=== PATIENT | female | born 2000 | race Caucasian/White ===

== ENCOUNTER 2020-10-30 11:30 | Outpatient (REF) | payer BC, SELFPAY ==
[2020-10-30 13:40] LABS: Hematocrit 40.2 % (37-47); Hemoglobin 13.4 g/dl (12.0-16.0); Mean Corpuscular HGB Conc 33.3 g/dl (31.0-35.0); Mean Corpuscular Hemoglobin 29.6 pg (27.0-33.0); Mean Corpuscular Volume 88.7 fL (80-98); Mean Platelet Volume 9.6 fL (9.4-12.3); Platelet Count 233 X10*3/uL (160-400); Red Blood Count 4.53 X10*6/uL (4.20-5.50); Red Cell Distribution Width 13.2 % (11.0-16.0); White Blood Count 5.3 X10*3/uL (4.8-10.8)
[2020-10-30 14:03] LABS: Alanine Aminotransferase 26 U/L (0-31); Albumin Level 4.3 g/dL (3.5-5.0); Alkaline Phosphatase 57 U/L (39-117); Anion Gap 13 (12-20); Aspartate Amino Transferase 18 U/L (5-31); Bilirubin Total 0.5 mg/dL (0.0-1.0); Blood Urea Nitrogen 4 mg/dL (9-16); C Reactive Protein 0.28 mg/dL (< or = 0.50); Calcium 9.8 mg/dL (8.4-10.2); Carbon Dioxide 25 mmol/L (22-29); Chloride 107 mmol/L (96-108); Estimated Glomerular Filt Rate > 60; Glucose Random 77 mg/dL (60-115); Potassium 3.7 mmol/L (3.3-5.1); Sodium 141 mmol/L (135-145); Total Protein 6.4 g/dL (6.5-8.0)
[2020-10-30 14:25] LABS: TSH reflex Free T4 0.49 uIU/mL (0.32-4.0)
[2020-10-31 13:08] LABS: H Pylori Breath Test Negative (Negative)
[2020-11-01 17:12] LABS: Transglutaminase Ab IgG 1 U/mL; Transglutaminase IgA 1 U/mL
== END 2020-10-30 11:31 | disposition home or self-care (01) ==
LOC: HO.LAB 11:30
PROVIDERS: Visit Provider Nurse Practitioner Family
DX: K58.2 Mixed irritable bowel syndrome (principal); K21.9 Gastro-esophageal reflux disease without esophagitis; R10.11 Right upper quadrant pain; R14.0 Abdominal distension (gaseous); K58.9 Irritable bowel syndrome, unspecified; Z12.11 Encounter for screening for malignant neoplasm of colon; Z11.0 Encounter for screening for intestinal infectious diseases
CPT/HCPCS: 36415; 80053; 83013; 83516; 84443; 85027; 86140

== ENCOUNTER → 2020-12-04 10:46 | Outpatient (BNVA) | payer BC, SELFPAY | PROVIDERS: Visit Provider Nurse Practitioner Family ==

== ENCOUNTER 2021-01-04 07:31 | Day surgery (SDC) | payer BC, SELFPAY ==
--- NOTE | 2021-01-01 11:05 | P.CONAN_ITS ---
Documented by User: Alisha Rizo NP 01/01/21 11:06 HPI - Anesthesia Eval Consult details Narrative: 20yo F for Upper Endoscopy [facility] Past Medical History Medical History IBS (irritable bowel syndrome) Social History Social History Household Members: Family Alcohol intake: current Alcohol intake frequency: holidays/special occasions only Patient Tobacco Use Status: Never used Tobacco Use of substances other than those prescribed or required for medical reasons: No Are you DNR?: No Advance Directives: No Advance Directives Information Provided: Yes Patient : No (UCG pending) Meds Allergies Allergy/AdvReac Type Severity Reaction Status Date / Time No Known Allergies Allergy Verified 12/29/20 15:31 Home Medications Medication Instructions Recorded Confirmed Last Taken Type fluticasone propionate 50 1 spray INTRANASAL DAILY 12/29/20 12/29/20 Unknown History mcg/actuation nasal spray,suspension norgestimate 0.25 mg-ethinyl 1 tab PO DAILY 12/29/20 12/29/20 Unknown History estradiol 35 mcg tablet (Wilson-Linyah) Exam Exam Date and Time: January 01, 2021 1105 Assessment and Plan Assessment Anesthesia Assessment: Chart Reviewed Documented by User: Carla Catherine MD 01/04/21 08:23 [facility] Past Medical History Medical History IBS (irritable bowel syndrome) Family History Family history of problems with anesthesia: No Surgical History History of Problems with Anesthesia: No Social History Social History Household Members: Family Alcohol intake: current Alcohol intake frequency: holidays/special occasions only Patient Tobacco Use Status: Never used Tobacco Use of substances other than those prescribed or required for medical reasons: No Are you DNR?: No Advance Directives: No Advance Directives Information Provided: Yes Patient : No (UCG pending) Meds Allergies Allergy/AdvReac Type Severity Reaction Status Date / Time No Known Allergies Allergy Verified 12/29/20 15:31 Home Medications Medication Instructions Recorded Confirmed Last Taken Type fluticasone propionate 50 1 spray INTRANASAL DAILY 12/29/20 12/29/20 Unknown History mcg/actuation nasal spray,suspension norgestimate 0.25 mg-ethinyl 1 tab PO DAILY 12/29/20 12/29/20 Unknown History estradiol 35 mcg tablet (Wilson-Linyah) Exam Airway Mallampati Class: I TM Dist: >3cm Neck ROM: Full Heart: rrr Lungs: cta Assessment and Plan Assessment Anesthesia Assessment: Anesthesia Plan Discussed and Chart Reviewed Final Anesthetic Review Family History of Problems with Anesthesia: No History of Problems with Anesthesia: No NPO: Yes ASA Class: I Final Preanesthetic Review: No Changes in Pt Med Stat, Meds/Allgs Chart Reviewed and Consent Obtained/Reviewed Patient Risk: Intermediate Procedure Risk: Intermediate Anesthetic Plan Anesthetic Plan: MAC: Disposition: Standard PACU
[2021-01-04 07:50] LABS: UPreg QC Valid YES; Urine Pregnancy NEGATIVE (NEGATIVE)
[2021-01-04 07:56] VITALS: BP 124/74; PULSE 67; RESP 6; TEMP 36.7; O2SAT 98; BMI 22.1
[2021-01-04] MEDS: Lactated Ringers 1,000 ML 100 ML IVCONT (08:04)
--- NOTE | 2021-01-04 08:35 | MHC.SHP ---
Pre-Procedural Eval Section A Date of Service: 01/04/21 The patient is an INPATIENT: No Changes since office visit: Yes Patient answered all questions; No Cold of Flu in the past 2 weeks, No New Medical Problems and No Changes in Medication The History & Physical has been completed within 30 days and I have reviewed it.: Yes Section B Chief Complaint: GERD Allergies: Allergies Allergy/AdvReac Type Severity Reaction Status Date / Time No Known Allergies Allergy Verified 12/29/20 15:31 Plan I have reviewed the history and physical and performed a pertinent physical examination on my patient. No changes have occurred unless specified.
--- NOTE | 2021-01-04 08:35 | PM.OP ---
Brief Operative Note Date of Service: 01/04/21 Pre-op diagnosis: GERD, abdominal pain, bloating, constipation alternating with diarrhea Post-op diagnosis: other (Gastritis, GERD) Procedure: FLEXIBLE TRANSORAL UPPER GASTROINTESTINAL ENDOSCOPY WITH BIOPSIES Consent: Indications for the procedure and potential complications of bleeding, perforation, reaction to medications and missed diagnosis were discussed with the patient and informed consent was obtained. Instrument: Olympus GIF H 190 mid size upper endoscope Monitoring: Vital signs and clinical assessment, continuous EKG monitoring, Pulse oximetry, Carbon Dioxide monitoring and blood pressure monitoring were done throughout the procedure. Procedure: The patient was placed in the left lateral decubitis position and pre-procedure medications were administered and a bite block was placed. The endoscope was inserted into the mouth and advanced under direct vision to the third part of duodenum. A careful inspection was made as the upper endoscope was withdrawn including a retroflexed examination of the proximal stomach; Findings and interventions are described below. Findings: Larynx: Normal Esophagus: GE junction at 40 cms. No esophagitis or Huang's. Biopsies were obtained from proximal esophagus to check for EOE Stomach: Mild gastric antral erythema. Biopsies were obtained. Grade 2 flap valve on retroflexed examination of the cardia. Duodenum: Normal bulb and descending duodenum. Biopsies were obtained from 3rd part of the duodenum to check for celiac sprue Intervention: Biopsies as noted above Impression and Post Procedure Diagnosis: Endoscopy Findings: ESOPHAGUS: Normal - biopsies were obtained from proximal esophagus to check for EOE STOMACH: Mild antral gastritis DUODENUM: Normal - biopsied to check for celiac disease Plan: Await pathology results Patient has an appointment on 01/18/21 in the GI Clinic with Jada Amaro FNP-BC . Above findings were reviewed with the patient and GERD and Gastritis handouts were given in the discharge area Surgeon: Sampson Sr MD Anesthesia: MAC (Holley Lewis CRNA) Was an Returner used for this Procedure?: Yes Returner: Laxmi Duarte Estimated blood loss (mL): 0 Pathology: other (A. small bowel biopsies, R/O celiac disease B. gastric antrum biopsies, R/O H. pylori C. proximal esophagus, R/O EOE) Condition: stable Disposition: PACU
--- NOTE | 2021-01-04 08:36 | P.OP_ITS ---
Operative Note Operative Note Date of Service: 01/04/21 Narrative: Pre-op diagnosis:?GERD, abdominal pain, bloating, constipation alternating with diarrhea Post-op diagnosis:?other (Gastritis, GERD) Procedure:? FLEXIBLE TRANSORAL UPPER GASTROINTESTINAL ENDOSCOPY WITH BIOPSIES Consent:?Indications for the procedure and potential complications of bleeding, perforation, reaction to medications and missed diagnosis were discussed with the patient and informed consent was obtained. Instrument:?Olympus GIF H 190 mid size upper endoscope Monitoring: Vital signs and clinical assessment, continuous EKG monitoring, Pulse oximetry, Carbon Dioxide monitoring and blood pressure monitoring were done throughout the procedure. Procedure:?The patient was placed in the left lateral decubitis position and pre-procedure medications were administered and a bite block was placed. The endoscope was inserted into the mouth and advanced under direct vision to the third part of duodenum. A careful inspection was made as the upper endoscope was withdrawn including a retroflexed examination of the proximal stomach; Findings and interventions are described below. Findings: Larynx:? Normal Esophagus: GE junction at 40 cms. No esophagitis or Huang's.? Biopsies were obtained from proximal esophagus to check for EOE Stomach: Mild gastric antral erythema. Biopsies were obtained. Grade 2 flap valve on retroflexed examination of the cardia. Duodenum: Normal bulb and descending duodenum.? Biopsies were obtained from 3rd part of the duodenum to check for celiac sprue Intervention: Biopsies as noted above Impression and Post Procedure Diagnosis: Endoscopy Findings: ESOPHAGUS: Normal - biopsies were obtained from proximal esophagus to check for EOE STOMACH: Mild antral gastritis DUODENUM: Normal - biopsied to check for celiac disease Plan: Await pathology results Patient has an appointment on 01/18/21 in the GI Clinic with Jada Amaro FNP- BC . Above findings were reviewed with the patient and GERD and Gastritis handouts were given in the discharge area Surgeon:?Sampson Sr MD Anesthesia:?MAC (Holley Lewis CRNA) Was an Mobility Engineer used for this Procedure?:?Yes Mobility Engineer:?Laxmi Duarte Estimated blood loss (mL):?0 Pathology:?other (A. small bowel biopsies, R/O celiac disease? B. gastric antrum biopsies, R/O H. pylori? C. pro ximal esophagus, R/O EOE) Condition:?stable Disposition:?PACU
[2021-01-04 08:56] VITALS: BP 103/49; PULSE 81; RESP 12; TEMP 36.6; O2SAT 97
[2021-01-04 09:11] VITALS: BP 100/52; PULSE 64; RESP 16; O2SAT 97
[2021-01-04 09:26] VITALS: BP 123/74; PULSE 73; RESP 16; TEMP 36.6; O2SAT 100
== END 2021-01-04 09:49 | disposition home or self-care (01) ==
PROVIDERS: Nurse Practitioner; Visit Provider Internal Medicine Gastroenterology
PROC: 0DJ08ZZ Inspection of Upper Intestinal Tract, Via Natural or Artificial Opening Endoscopic (ICD-10-PCS; CPT 43235; principal; 2021-01-04 08:30)
DX: K21.9 Gastro-esophageal reflux disease without esophagitis (principal); K29.50 Unspecified chronic gastritis without bleeding; K58.2 Mixed irritable bowel syndrome; R14.0 Abdominal distension (gaseous); Z79.899 Other long term (current) drug therapy
CPT/HCPCS: 43239; 81025; 88305; 88342; J2250

== ENCOUNTER → 2021-01-18 13:29 | Outpatient (BNVA) | payer BC, SELFPAY | PROVIDERS: Visit Provider Nurse Practitioner Family ==